=== PATIENT | female | born 1985 | race Two or more races ===

== ENCOUNTER 2020-08-23 00:24 | Emergency (ER) | payer OTHER ==
[~2020-08-23] VITALS: Ht 162.6 cm; Wt 50.8 kg
[2020-08-23] MEDS ORDERED: SERTRALINE 100 MG (01:36)
[2020-08-23] MEDS ORDERED: ZYNCOF 20-400120 ML PO (05:21)
== END 2020-08-23 05:27 | disposition home or self-care (01) ==
LOC: ER 00:24
DX: J20.9 Acute bronchitis, unspecified (principal); Z03.818 Encounter for observation for suspected exposure to other biological agents ruled out